=== PATIENT | female | born 1950 | race Caucasian/White ===

== ENCOUNTER → 2018-11-13 16:00 | Oncology outpatient (ONC) | payer OTHER, SELFPAY ==
[2018-10-23 15:38] VITALS: BP 133/74; PULSE 94; RESP 20; TEMP 36.4; O2SAT 96
--- NOTE | 2018-10-23 16:08 | ONC.CONS ---
History of Present Illness - Data of Consult Consult date: 10/23/18 Primary Care Provider: Temi Leary PA-C - Consult Narrative Narrative: Diagnosis: Possible hemochromatosis History of present illness: Mariel Bejarano is a 68 year old female who is referred for further evaluation. Patient states that her niece was diagnosed with hemochromatosis. She was found to have a ferritin of approximately 6000. Genetic testing revealed a compound heterozygous state. She has started on a phlebotomy regimen and is apparently doing quite well. the patient's sister was tested and found to be a carrier for the C282Y mutation. The patient had iron testing done on August 06. She was found to have an iron level of 135 which was normal. Her saturation was 51% which was normal. ferritin was modestly elevated at 314. She has never taken iron. She has no history of anemia. She has never needed a blood transfusion. She has never been a blood donor. She is postmenopausal. She denies any history of liver disease. She does not have diabetes. She does have some mild arthritis. She has not noticed any skin changes. no history of heart disease or congestive heart failure. She otherwise feels well today. Her medications include albuterol followed a pain Debby Advair and Spiriva. Her past medical history is notable for asthma and hypertension. She has had previous hysterectomy for a ovarian cyst. Social history: She is a retired psychologist. She does not smoke. She has occasional alcohol use. CC: Owen Gomez MD Home Medications and Allergies Home Medications Medication Instructions Recorded Confirmed Type albuterol sulfate [Ventolin HFA] 2 puff INHALATION Q4-6H PRN 10/23/18 10/23/18 History felodipine 10 mg PO DAILY 10/23/18 10/23/18 History fexofenadine 60 mg PO PRN PRN 10/23/18 10/23/18 History fluticasone propion-salmeterol BID 10/23/18 History [Advair Diskus] tiotropium bromide [Spiriva 2 puff INHALATION DAILY 10/23/18 10/23/18 History Respimat] Allergies Allergy/AdvReac Type Severity Reaction Status Date / Time penicillin G Allergy Unknown Verified 10/23/18 15:22 Review of Systems - Patient Self-Reported Symptoms SR Neuro issues: Numbness or tingling Cardiovascular: no chest pain Respiratory: wheezing Gastrointestinal: no jaundice Integumentary: no rash Hematologic/Lymphatic: no anemia Exam Vital signs: Vital Signs Temp Pulse Resp BP Pulse Ox 10/23/18 15:38 97.6 F 94 H 20 133/74 96 Intake and Output 10/23/18 10/23/18 10/23/18 07:59 15:59 23:59 Other: Weight 83.4 kg Patient Weight 10/23/18 23:59 Weight 83.4 kg - Constitutional positive no acute distress, positive average body habitus - Routine HEENT Exam Head: Present: normocephalic, atraumatic Eye: Present: EOMI, PERRL. Absent: conjunctival icterus, scleral injection ENT: Present: mucous membranes moist, mucous membranes dry - Routine Neck Exam Present: supple. Absent: lymphadenopathy, thyromegaly - Routine Respiratory Exam Present: Clear to auscultation bilaterally. Absent: rales, wheezes - Routine Cardiovascular Exam Present: RRR, S1, S2. Absent: murmur - Routine Abdominal Exam Present: soft, normoactive bowel sounds. Absent: tenderness, organomegaly, mass - Routine Extremities Exam Absent: cyanosis, clubbing, edema - Routine Back/Spine Exam Back/Spine: Absent: paraspinal tenderness, vertebral tenderness - Routine Skin Exam Present: intact. 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 Her family history is positive for hemochromatosis. Her niece is affected and her sister is a carrier. I think the most likely explanation is that the patient also is a carrier for the C282Y mutation. We will plan on checking her HIV status. If in fact she is a carrier, she is not at risk for developing manifestations of the disease and would not need phlebotomy. She will return to clinic in about 3 weeks for follow-up.
[2018-11-13 16:19] VITALS: BP 133/74; PULSE 94; RESP 20; TEMP 36.4; O2SAT 96
--- NOTE | 2018-11-13 16:40 | ONC.PN ---
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 She was noticed to have a mildly elevated ferritin at 314. Her iron level in saturation were normal. since her last visit here, she has been feeling quite well and has no specific complaints. She denies any new aches or pains. She is otherwise without complaint. Her medications are unchanged and include albuterol Xeloda pain Debby and an inhaler. - Patient Self-Reported Symptoms SR Neuro issues: Numbness or tingling Home Medications and Allergies Home Medications Medication Instructions Recorded Confirmed Type albuterol sulfate [Ventolin HFA] 2 puff INHALATION Q4-6H PRN 10/23/18 10/23/18 History felodipine 10 mg PO DAILY 10/23/18 10/23/18 History fexofenadine 60 mg PO PRN PRN 10/23/18 10/23/18 History fluticasone propion-salmeterol BID 10/23/18 History [Advair Diskus] tiotropium bromide [Spiriva 2 puff INHALATION DAILY 10/23/18 10/23/18 History Respimat] Allergies Allergy/AdvReac Type Severity Reaction Status Date / Time penicillin G Allergy Unknown Verified 10/23/18 15:22 Exam Vital signs: Vital Signs Temp Pulse Resp BP Pulse Ox 11/13/18 16:19 97.6 F 94 H 20 133/74 96 - Constitutional positive no acute distress, positive average body habitus Comments: She is not further examined. 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 Her family history is positive for hemochromatosis. Her niece is affected and her sister is a carrier. The patient's own genotyping does in fact confirm that she is a carrier for C 282Y. She has essentially no risk of developing manifestations of hemochromatosis. There is no indication for phlebotomy or for ferritin monitoring. I have not scheduled a follow-up appointment for her but would be happy to see her again in the future should any new issues arise.
== END ==
PROVIDERS: PCP Physician Assistant
DX: Z01.89 Encounter for other specified special examinations (principal); Z14.8 Genetic carrier of other disease
CPT/HCPCS: 81256; 99204; 99213; 99214

== ENCOUNTER → 2020-10-07 13:32 | Outpatient (CLI) | payer OTHER, SELFPAY ==
[2020-10-07 13:59] LABS: Add Manual Diff / Slide Review NO; Basophils Absolute Auto 100 /uL (0-100); Basophils Percent Auto 0.9 % (0-2); Eosinophils Absolute Auto 200 /uL (0-450); Eosinophils Percent Auto 2.6 % (2-4); Hematocrit 43.9 % (36-46); Hemoglobin 14.7 g/dL (12.0-16.0); Lymphocytes Absolute Auto 1300 /uL (1100-4500); Lymphocytes Percent Auto 21.6 % (25-40); Mean Corpuscular HGB Conc 33.5 % (30-36); Mean Corpuscular Hemoglobin 32.3 PG (26-34); Mean Corpuscular Volume 96.5 fL (80-100); Monocytes Absolute Auto 500 /uL (0-900); Monocytes Percent Auto 7.7 % (3-14); Neutrophils Absolute Auto 4200 /uL (1500-7000); Neutrophils Percent Auto 67.2 % (50-75); Platelet Count 277 X10^3/uL (150-400); Red Blood Cell Count 4.55 X10^6/uL (4.0-5.2); Red Cell Distribution Width 13.2 % (11.6-14.8); White Blood Cell Count 6.2 X10^3/uL (4.5-11.0)
[2020-10-07 14:18] LABS: Erythrocyte Sedimentation Rate 17 MM/HR (0-20)
[2020-10-07 14:20] LABS: Alanine Aminotransferase 45 IU/L (<35); Albumin 4.5 g/dL (3.5-5.0); Albumin Globulin Ratio 1.6 (1.0-2.8); Alkaline Phosphatase 75 U/L (38-126); Aspartate Aminotransferase 41 IU/L (14-36); BUN Creatinine Ratio 18.3 (6-22); Bilirubin Total 0.6 mg/dL (0.2-1.3); Blood Urea Nitrogen 11 mg/dL (7-17); Calcium 10.2 mg/dL (8.4-10.2); Carbon Dioxide 24 mmol/L (22-32); Chloride 103 mmol/L (98-107); Estimated Glomerular Filt Rate > 60.0 mL/min (>60); Globulin 2.9 g/dL (1.7-4.1); Glucose 115 mg/dL (80-110); HEMOLYSIS < 15 (0-50); Potassium 3.7 mmol/L (3.4-5.1); Sodium 137 mmol/L (137-145); Total Protein 7.4 g/dL (6.3-8.2)
[2020-10-07 14:25] LABS: C-Reactive Protein Quant 0.7 mg/dL (<1.0)
[2020-10-07 14:51] LABS: Thyroid Stimulating Hormone 1.81 uIU/mL (0.47-4.68)
[2020-10-12 22:51] LABS: Immunoglobulin E 190 IU/mL (6-495)
== END ==
PROVIDERS: PCP Internal Medicine; Referring Provider Allergy & Immunology; Visit Provider Internal Medicine
DX: I10 Essential (primary) hypertension (principal); R00.0 Tachycardia, unspecified; J45.50 Severe persistent asthma, uncomplicated
CPT/HCPCS: 36415; 80053; 82785; 84443; 85025; 85651; 86140

== ENCOUNTER → 2020-12-16 14:07 | Outpatient (CLI) | payer OTHER, SELFPAY ==
--- NOTE | 2020-12-16 09:31 | DI.ECHO.S_ITS ---
[facility] +---------+ : : [address] : : : : [address] : : : : Phone: [phone] Echocardiogram Report + + :Name: LONDON VALENTINO Study Date: 12/16/2020 Height: 65 in : :[facility] ReadingLocation: Weight: 180 lb : : Gender: Female BSA: 1.9 m2 : :: 1950 Age: 70 yrs BP: 152/79 mmHg: :Reason For Study: Dyspnea : :Ordering Physician: JEREMY : :ROLANDA Performed By: Grant Johnson : :Referring: ROLANDA LUNA : + + Interpretation Summary 1) Normal left ventricular thickness, size, wall motion, and systolic function (EF 60-65%). 2) Normal right ventricular size and function. 3) No significant valvular abnormalities. 4) The right ventricular systolic pressure is estimated to be at least 32 mmHg based on an estimated right atrial pressure of 3 mm Hg. 5) No prior Echo available for comparison. Procedure: A two-dimensional transthoracic echocardiogram with color flow and Doppler was performed. The study quality was technically adequate. There is no prior echocardiogram noted for this patient. The patient was in sinus rhythm with heart rates between 75-92 bpm during the exam. Left Ventricle: The left ventricle is normal in size and wall thickness. Left ventricular systolic function is normal. The ejection fraction is estimated to be 60-65%. There are no focal wall motion abnormalities. Diastolic parameters suggest probable normal left ventricular diastolic function and normal filling pressures. Right Ventricle: The right ventricle is normal in size and function. Atria: Both atria are normal in size. There is no Doppler evidence for an interatrial shunt. Mitral Valve: The mitral valve is normal in structure and function. There is trace mitral regurgitation. Aortic Valve: The aortic valve is normal in structure and function. There is no aortic valve stenosis. No aortic regurgitation is present. Tricuspid Valve: The tricuspid valve is normal in structure and function. There is mild tricuspid regurgitation. The right ventricular systolic pressure is estimated to be at least 32 mmHg based on an estimated right atrial pressure of 3 mm Hg. Pulmonic Valve: The pulmonic valve is not well visualized. There is no pulmonic valvular regurgitation. Great Vessels: The aortic root is normal size. The dimensions of the ascending aorta are normal. The IVC is of normal diameter and collapses greater than 50% with a sniff. This suggests a low right atrial pressure of 3 mm Hg. Pericardium/ Pleura There is no pericardial effusion. There is no pleural effusion. MMode/2D Measurements & Calculations LVIDd: 4.4 cm LVOT diam: 2.0 cm LVIDs: 2.9 cm Ao root diam: 2.9 cm FS: 35.6 % asc Aorta Diam: 2.8 cm IVSd: 0.94 cm LVPWd: 0.93 cm LV mathur. diameter/BSA (cm/m^2): 2.4 LV sys. diameter/BSA (cm/m^2): 1.5 LA A2 area: 15.7 cm2 RA area: 12.0 cm2 LA A4 area: 18.1 cm2 IVC diam: 1.5 cm LA length (vol): 4.7 cm LA vol: 51.1 ml LA vol index: 27.0 ml/m2 RVD1 (basal): 2.8 cm TAPSE: 2.2 cm Doppler Measurements & Calculations Ao V2 max: 166.9 cm/sec LVOT Max Wili: 113.2 cm/sec Ao V2 mean: 120.6 cm/sec LV V1 max P.1 mmHg Ao max P.1 mmHg LV V1 VTI: 25.9 cm Ao mean P.4 mmHg FRANCESCA(I,D): 2.2 cm2 Ao V2 VTI: 36.7 cm FRANCESCA(V,D): 2.1 cm2 sev ratio: 0.71 FRANCESCA indexed to BSA (cm^2/m^2): 1.1 MV E max wili: 87.9 cm/sec TR max wili: 270.5 cm/sec MV A max wili: 92.8 cm/sec TR max P.3 mmHg MV E/A: 0.95 PA pr(Accel): 34.4 mmHg Med Peak E' Wili: 12.5 cm/sec E/E' med: 7.0 Lat Peak E' Wili: 10.8 cm/sec E/E' lat: 8.1 E/e' average: 7.6 MV dec time: 0.19 sec SV(LVOT): 79.3 ml Reading Physician:05:58 PM
== END ==
PROVIDERS: PCP Internal Medicine; Referring Provider Internal Medicine; Visit Provider Internal Medicine
DX: M85.851 Other specified disorders of bone density and structure, right thigh (principal); Z78.0 Asymptomatic menopausal state; R06.00 Dyspnea, unspecified
CPT/HCPCS: 77080; 93306

== ENCOUNTER → 2021-01-27 10:15 | Outpatient (CLI) | payer OTHER, SELFPAY ==
[2021-01-27 11:12] LABS: Alanine Aminotransferase 37 IU/L (<35); Albumin 4.1 g/dL (3.5-5.0); Albumin Globulin Ratio 1.4 (1.0-2.8); Alkaline Phosphatase 65 U/L (38-126); Aspartate Aminotransferase 33 IU/L (14-36); BUN Creatinine Ratio 18.9 (6-22); Bilirubin Total 0.6 mg/dL (0.2-1.3); Blood Urea Nitrogen 10 mg/dL (7-17); Calcium 9.6 mg/dL (8.4-10.2); Carbon Dioxide 28 mmol/L (22-32); Chloride 105 mmol/L (98-107); Cholesterol 220 mg/dL (140-199); Estimated Glomerular Filt Rate > 60.0 mL/min (>60); Glucose 99 mg/dL (80-110); HDL Cholesterol 86 mg/dL (40-60); HEMOLYSIS < 15 (0-50); LDL Cholesterol Calculated 119 mg/dL (<100); Potassium 3.9 mmol/L (3.4-5.1); Sodium 139 mmol/L (137-145); Total Protein 7.1 g/dL (6.3-8.2); Triglycerides 75 mg/dL (35-150)
== END ==
PROVIDERS: PCP Internal Medicine; Referring Provider Internal Medicine; Visit Provider Internal Medicine
DX: E78.5 Hyperlipidemia, unspecified (principal); R06.00 Dyspnea, unspecified
CPT/HCPCS: 36415; 80053; 80061

== ENCOUNTER → 2021-05-16 10:34 | Outpatient (CLI) | payer OTHER, SELFPAY ==
[2021-05-16 12:50] LABS: Carbon Dioxide 29 mmol/L (22-32)
[2021-05-16 13:15] LABS: Alanine Aminotransferase 31 IU/L (<35); Albumin 4.4 g/dL (3.5-5.0); Albumin Globulin Ratio 1.7 (1.0-2.8); Alkaline Phosphatase 71 U/L (38-126); Aspartate Aminotransferase 28 IU/L (14-36); BUN Creatinine Ratio 16.1 (6-22); Bilirubin Total 0.8 mg/dL (0.2-1.3); Blood Urea Nitrogen 9 mg/dL (7-17); Calcium 9.7 mg/dL (8.4-10.2); Chloride 104 mmol/L (98-107); Cholesterol 178 mg/dL (140-199); Estimated Glomerular Filt Rate > 60.0 mL/min (>60); Globulin 2.6 g/dL (1.7-4.1); Glucose 102 mg/dL (80-110); HDL Cholesterol 109 mg/dL (40-60); HEMOLYSIS < 15 (0-50); LDL Cholesterol Calculated 55 mg/dL (<100); Potassium 4.2 mmol/L (3.4-5.1); Sodium 139 mmol/L (137-145); Triglycerides 69 mg/dL (35-150)
== END ==
PROVIDERS: PCP Internal Medicine; Referring Provider Internal Medicine; Visit Provider Internal Medicine
DX: E78.5 Hyperlipidemia, unspecified (principal)
CPT/HCPCS: 36415; 80053; 80061

== ENCOUNTER → 2021-09-30 10:48 | Outpatient (CLI) | payer OTHER, SELFPAY ==
[2021-09-30 12:37] LABS: COVID19 -Nasal RAPID Negative (Negative)
== END ==
PROVIDERS: PCP Internal Medicine; Visit Provider Family Medicine Sleep Medicine
DX: Z20.822 Contact with and (suspected) exposure to COVID-19 (principal)
CPT/HCPCS: 87635; C9803

== ENCOUNTER 2021-10-03 10:29 | Day surgery (SDC) | payer OTHER, SELFPAY ==
--- NOTE | 2021-10-03 | PATH_ITS ---
[facility] Accession Number: [id number] . 01 Material submitted: . colon - ASCENDING COLON . 02 Diagnosis: Ascending Colon: Tubular adenoma. MRV 10/05/2021 0959 Local . 02 Electronically signed: . Melida Delgado MD, Pathologist NPI- [id number] . 01 Gross description: . ASCENDING COLON: Received in formalin is 1 fragment(s) of hernandez, soft tissue measuring 0.2 x 0.2 x 0.1 cm submitted entirely in 1 cassette(s) /RAMBO 10/04/2021 2242 Local . 02 Pathologist provided ICD-10: K63.5, Z80.0, Z86.010 . 02 CPT . 125417 Specimen Comment: A courtesy copy of this report has been sent to [phone], [phone] Specimen Comment: [id number] Performed at: 01 [facility] Cyt[facility] [address] [facility], [place], [place] [id number] MD [address] MD Phone: [phone] Performed at: 02 [facility] [place] [address] [place], [place] [id number] MD Mariel Man MD Phone: [phone]
[2021-10-03 10:53] VITALS: BP 142/80; PULSE 114; RESP 12; TEMP 36.6; O2SAT 98; BMI 29.9
[2021-10-03] MEDS: SODIUM CHLORIDE 0.9% 1,000 ML 84 ML IV (11:06)
--- NOTE | 2021-10-03 11:30 | PM.HP.1 ---
History of Present Illness History of Present Illness Date Patient Seen: 10/03/21 Time Patient Seen: 11:30 Chief complaint: DX COLONOSCOPY Narrative: Personal history of colon polyps and a family history of colon cancer. Occasional fecal urgency Patient History Medical History Arthritis Asthma Cellulitis Diverticulitis HTN (hypertension) Surgical History Hx of appendectomy Hx of cataract surgery Hx of colonoscopy Hx of hysterectomy Family & Social History Family History Mother Hypertension Father Colon cancer Social History: household members significant other,other Tobacco & Substance use: Smoking Status Never smoker alcohol intake current alcohol intake frequency a few times a week Substance Use Type does not use Meds Home Medications and Allergies Home Medications Medication Instructions Recorded Confirmed Type albuterol sulfate 90 mcg/actuation 2 puff INHALATION Q4-6H PRN 10/23/18 10/03/21 History aerosol inhaler (Ventolin HFA) felodipine 10 mg tablet,extended 10 mg PO DAILY 10/23/18 10/03/21 History release 24 hr tiotropium bromide 2.5 2 puff INHALATION DAILY 10/23/18 10/03/21 History mcg/actuation mist for inhalation (Spiriva Respimat) budesonide-formoterol HFA 80 2 puff INHALATION BID 08/26/19 10/03/21 History mcg-4.5 mcg/actuation aerosol inhaler (Symbicort) Allergies Allergy/AdvReac Type Severity Reaction Status Date / Time penicillin G Allergy Unknown Verified 10/03/21 10:48 hydrobromides Allergy Unknown Uncoded 10/03/21 10:48 Tree pollen Allergy Unknown Watery Eye Uncoded 10/03/21 10:48 Review of Systems Review of Systems ROS: Yes All systems reviewed with the patient and are negative except as otherwise documented Exam Vital Signs (past 8 hours): - 10/03/21 10:53 Temperature 97.9 F Pulse Rate 114 H Respiratory Rate 12 Blood Pressure 142/80 H Pulse Oximetry 98 Oxygen Delivery Method Room Air Const General: cooperative and comfortable Orientation: alert HENMT Head: normocephalic Ears: external ears normal Nose: external nose normal Face and sinus: normal facial exam Mouth: oral mucosae normal Eyes General: appearance normal, both eyes and all related structures Neck Neck: normal visual inspection Chest Chest: normal inspection of the chest Resp Effort & Inspection: normal respiratory effort Cardio Rate: regular rate GI Inspection: normal to inspection Skin General: no rashes or lesions noted and No jaundice Neuro General: patient alert and moves all extremities Cognition: normal cognition Speech: speech normal Extrem General: no pedal edema Psych Appearance: grossly normal Assessment & Plan Assessment & Plan narrative: 71-year-old female with a personal history of colon polyps and family history of colon cancer. Colonoscopy is planned for today. Time Spent With Patient Critical Care time: I spent a total of [] minutes of critical care time on this patient's care today; this time is exclusive of procedural time.
--- NOTE | 2021-10-03 11:32 | PM.PREOP ---
Pre-operative Note COVID-19 COVID-19 status: Negative Result date/Date tested (Pos, Neg/Pending): 09/30/21 Criteria for continued procedure: Possibility delay results in more complex future surgery or treatment Interval Note History & Physical reviewed/Exam performed by Physician: Yes Changes to H&P: No ASA Class (for procedural sedation): II
--- NOTE | 2021-10-03 12:44 | PM.OP.COLON ---
Operative Date/Time/Diagnoses Date of procedure: 10/03/21 Time of procedure: 12:45 Pre-op diagnosis: Personal history of colon polyps family history of colon cancer Post-op diagnosis: same Procedure & Clinicians Study performed: Colonoscopy with cold forceps polypectomy Same procedure as scheduled: Yes Indications: Personal history of colon polyps family history of colon cancer Surgeon: Rakesh Alvarez Procedure Notes SCOAP/Timeout: Done Procedure in detail: After the risks and benefits were explained, written and verbal informed consent was obtained. The patient was brought into the procedure room and placed into the left lateral decubitus position. Please see nurse screen printing machine loader unloader notes for sedation details. Digital rectal examination was accomplished. The scope was introduced into the patient and advanced under direct visualization to the cecum as identified by the appendiceal orifice and ileocecal valve. The scope was slowly withdrawn to carefully examine the mucosa for any defects or lesions. Comprehensive imaging was accomplished throughout the rectum including the dentate line. The colon was decompressed, the scope was then removed from the patient who tolerated the procedure well. Bowel prep adequate Pediatric colonoscope Scope withdrawal time: 7 minutes Sedation minutes: 38 Complications: none Impression: Patient had fairly extensive diverticulosis in the sigmoid colon. This extended even into the right colon to some degree. Patient had an exceptionally challenging rectosigmoid junction to navigate as the corner was exceedingly acute. One we eventually arrived in the ascending colon it was quite difficult to then finally achieve cecal intubation secondary to some looping. This was overcome with patient position changed into the supine position with application of abdominal pressure. There was a small 3 mm polyp in the ascending removed with cold forceps. No additional pathology was appreciated throughout. Endoscopic diagnosis 1. Pandiverticulosis 2. Tortuous colon 3. Small colon polyp Post-procedure Plan for aftercare: 1. Await histopathology. 2. Considering family history and personal history of colon polyps, repeat colonoscopy can be considered in 5 years time. Disposition: PACU
[2021-10-03 12:50] VITALS: BP 114/56; PULSE 85; RESP 14; TEMP 36.2; O2SAT 96
[2021-10-03 12:55] VITALS: BP 110/58; PULSE 85; RESP 20; O2SAT 96
[2021-10-03 13:00] VITALS: BP 120/68; PULSE 85; RESP 21; O2SAT 99
[2021-10-03 13:11] VITALS: BP 100/73; PULSE 80; RESP 17; TEMP 36; O2SAT 95
[2021-10-03 13:20] VITALS: BP 115/65; PULSE 82; RESP 16; TEMP 36.2; O2SAT 97
== END 2021-10-03 12:25 | disposition home or self-care (01) ==
LOC: ENDO 10:31
PROVIDERS: PCP Internal Medicine; Referring Provider Internal Medicine Gastroenterology; Visit Provider Internal Medicine Gastroenterology
PROC: 0DJD8ZZ Inspection of Lower Intestinal Tract, Via Natural or Artificial Opening Endoscopic (ICD-10-PCS; CPT 45378; principal; 2021-10-03 11:30)
DX: Z12.11 Encounter for screening for malignant neoplasm of colon (principal); Z86.010 Personal history of colon polyps; Z80.0 Family history of malignant neoplasm of digestive organs; K57.30 Diverticulosis of large intestine without perforation or abscess without bleeding; D12.2 Benign neoplasm of ascending colon
CPT/HCPCS: 45380; J2704

== ENCOUNTER → 2022-02-02 14:28 | Outpatient (CLI) | payer OTHER, SELFPAY ==
--- NOTE | 2022-02-02 14:30 | DI.CT.S_ITS ---
PROCEDURE: CT CHEST WO CON INDICATIONS: Dyspnea, unspecified TECHNIQUE: Noncontrast 5 mm thick sections acquired from the pulmonary apices to the posterior costophrenic angles. 1 mm lung window, 5 mm thick coronal and sagittal and 7 mm axial MIP reformats were then acquired. For radiation dose reduction, the following was used: automated exposure control, adjustment of mA and/or kV according to patient size. COMPARISON: None. FINDINGS: Image quality: Excellent. Lungs and pleura: Scarring along the lingula and right middle lobe. No acute airspace consolidation. No pleural effusions. Calcified nodule in the left lower lobe. Other small noncalcified nodules are present, for example in the right image 3/122. There is bronchial wall thickening. Mediastinum: Small hiatal hernia. No thoracic aortic aneurysm. Heart size is normal. No lymphadenopathy. Bones and chest wall: Thyroid is within normal limits. No acute or suspicious osseous lesion. Abdomen: Unremarkable on this noncontrast examination. IMPRESSION: No acute thoracic abnormality. There is scarring along the lingula and right middle lobe. Small noncalcified pulmonary nodules can be followed with optional chest CT in 1 year for high risk patients. Small hiatal hernia. Dictated by: Estevan Hussein M.D. on 02/02/2022 at 15:11 Approved by: Estevan Hussein M.D. on 02/02/2022 at 15:22
--- NOTE | 2022-02-02 14:31 | DI.US.S_ITS ---
PROCEDURE: US PERIPH VENOUS LOW EXTREM BI INDICATIONS: Dyspnea, unspecified TECHNIQUE: Real-time imaging, as well as color and pulse Doppler interrogation, were performed of the deep veins of both legs from the inguinal ligament to the popliteal fossa. COMPARISON: None. FINDINGS: Right: The common femoral, femoral and popliteal veins are normally compressible, and free of intraluminal thrombus. Color and pulse Doppler demonstrate normal phasic intravascular flow. There is normal augmentation response to distal compression maneuver. Left: The common femoral, femoral and popliteal veins are normally compressible, and free of intraluminal thrombus. Color and pulse Doppler demonstrate normal phasic intravascular flow. There is normal augmentation response to distal compression maneuver. IMPRESSION: No deep venous thrombosis identified within either the left or right lower extremities. Dictated by: Jesus Clark [facility] Interpreted: Yashira Nicole MD on 02/02/2022 at 15:33 Transcribed by: FAVIAN on 02/02/2022 at 15:33 Approved by: Yashira Nicole M.D. on 02/02/2022 at 17:28
== END ==
PROVIDERS: PCP Internal Medicine; Referring Provider Internal Medicine Cardiovascular Disease; Visit Provider Internal Medicine Cardiovascular Disease
DX: R06.00 Dyspnea, unspecified (principal); M25.562 Pain in left knee; K44.9 Diaphragmatic hernia without obstruction or gangrene; R91.8 Other nonspecific abnormal finding of lung field; J98.4 Other disorders of lung
CPT/HCPCS: 71250; 93970

== ENCOUNTER → 2022-03-02 13:36 | Outpatient (CLI) | payer OTHER, SELFPAY ==
[2022-03-02 15:24] LABS: Alanine Aminotransferase 32 IU/L (<35); Albumin 4.2 g/dL (3.5-5.0); Albumin Globulin Ratio 1.6 (1.0-2.8); Alkaline Phosphatase 65 U/L (38-126); Aspartate Aminotransferase 34 IU/L (14-36); BUN Creatinine Ratio 17.7 (6-22); Bilirubin Total 0.6 mg/dL (0.2-1.3); Blood Urea Nitrogen 11 mg/dL (7-17); Calcium 9.4 mg/dL (8.4-10.2); Carbon Dioxide 28 mmol/L (22-32); Chloride 103 mmol/L (98-107); Estimated Glomerular Filt Rate > 60 mL/min (>60); Globulin 2.7 g/dL (1.7-4.1); Glucose 117 mg/dL (80-110); HEMOLYSIS < 15 (0-50); Potassium 4.2 mmol/L (3.4-5.1); Sodium 139 mmol/L (137-145); Total Protein 6.9 g/dL (6.3-8.2)
== END ==
PROVIDERS: PCP Internal Medicine; Referring Provider Internal Medicine; Visit Provider Internal Medicine
DX: R00.2 Palpitations (principal)
CPT/HCPCS: 36415; 80053

== ENCOUNTER → 2022-03-10 07:32 | Outpatient (CLI) | payer OTHER, SELFPAY ==
--- NOTE | 2022-03-10 | DI.NM.S_ITS ---
PROCEDURE: NM EXERCISE TREADMILL NON NUC COMPARISON: None. INDICATIONS: Dyspnea, unspecified FINDINGS: The patient exercised for 3 minutes and 37 seconds reaching 105% of maximum predicted heart rate (4.6 METs, VIRGILIO +34%). Appropriate BP response to exercise. No ST changes with exercise. No angina during the study. Dyspnea noted with exercise. IMPRESSION: Low risk, normal treadmill ECG only stress test with moderately reduced exercise tolerance (4.6METs, VIRGILIO +34%). Target heart rate achieved. No angina during the study. Dyspnea with exercise. Dictated by: Sarah Sanchez MD on 03/10/2022 at 13:10 Approved by: Sarah Sanchez MD on 03/10/2022 at 13:12
[2022-03-10 09:02] LABS: COVID19 -Nasal RAPID Negative (Negative)
== END ==
PROVIDERS: PCP Internal Medicine; Referring Provider Internal Medicine Cardiovascular Disease; Visit Provider Internal Medicine Cardiovascular Disease
DX: R06.00 Dyspnea, unspecified (principal); Z20.822 Contact with and (suspected) exposure to COVID-19
CPT/HCPCS: 87635; 93017

== ENCOUNTER → 2023-01-12 12:06 | Outpatient (CLI) | payer OTHER, SELFPAY ==
--- NOTE | 2023-01-12 | DI.CT.S_ITS ---
PROCEDURE: CT CHEST WO CON INDICATIONS: ABDNORMAL XRAY / LUNG NODULE TECHNIQUE: Noncontrast 5 mm thick sections acquired from the pulmonary apices to the posterior costophrenic angles. 1 mm lung window, 5 mm thick coronal and sagittal and 7 mm axial MIP reformats were then acquired. For radiation dose reduction, the following was used: automated exposure control, adjustment of mA and/or kV according to patient size. COMPARISON: [facility], CT, CT CHEST WO [facility], 02/02/2022, 14:35. FINDINGS: Lungs and pleura: No consolidation or pleural effusion. Redemonstrated scarring at the lingula and right middle lobe. A few scattered calcified granulomata are present. Previously indexed 1-2 mm nodule at the right upper lobe (3/125) is unchanged. No definite new suspicious or enlarging pulmonary nodule. Mediastinum: No pericardial effusion. Thoracic aorta and central pulmonary arteries are normal in size. Esophagus is normal in caliber. Small hiatal hernia. Bones and chest wall: Multilevel degenerative change of the visualized spine. No axillary or supraclavicular adenopathy by size criteria. Abdomen: Visualized upper abdominal solid organs and bowel loops appear unremarkable in the absence of contrast. IMPRESSION: Previously indexed tiny right upper lobe pulmonary nodule is unchanged. No definite new suspicious or enlarging pulmonary nodule. Small hiatal hernia. Dictated by: Giovany Bobo M.D. on 01/13/2023 at 18:06 Approved by: Giovany Bobo M.D. on 01/13/2023 at 18:28
== END ==
PROVIDERS: PCP Internal Medicine; Referring Provider Internal Medicine; Visit Provider Internal Medicine
DX: R91.8 Other nonspecific abnormal finding of lung field (principal); K44.9 Diaphragmatic hernia without obstruction or gangrene
CPT/HCPCS: 71250

== ENCOUNTER → 2023-07-14 08:11 | Outpatient (CLI) | payer OTHER, SELFPAY ==
[2023-07-14 09:13] LABS: Chloride 100 mmol/L (98-107); HEMOLYSIS < 15 (0-50)
[2023-07-14 09:14] LABS: Alanine Aminotransferase 41 IU/L (<35); Albumin 4.3 g/dL (3.5-5.0); Albumin Globulin Ratio 1.4 (1.0-2.8); Alkaline Phosphatase 62 U/L (38-126); Aspartate Aminotransferase 44 IU/L (14-36); BUN Creatinine Ratio 15.6 (6-22); Bilirubin Total 0.6 mg/dL (0.2-1.3); Blood Urea Nitrogen 10 mg/dL (7-17); Calcium 9.7 mg/dL (8.4-10.2); Carbon Dioxide 28 mmol/L (22-32); Estimated Glomerular Filt Rate > 60 mL/min (>60); Globulin 3.1 g/dL (1.7-4.1); Glucose 106 mg/dL (80-110); Potassium 4.2 mmol/L (3.4-5.1); Sodium 136 mmol/L (137-145); Total Protein 7.4 g/dL (6.3-8.2)
== END ==
LOC: LAB 08:12
PROVIDERS: PCP Internal Medicine; Referring Provider Physician Assistant; Visit Provider Physician Assistant
DX: U07.1 COVID-19 (principal)
CPT/HCPCS: 36415; 80053

== ENCOUNTER → 2024-12-15 11:58 | Outpatient (CLI) | payer MEDICARE, SELFPAY ==
--- NOTE | 2024-12-15 12:03 | DI.US.S_ITS ---
PROCEDURE: US CAROTID DOPPLER BI INDICATIONS: Right sided tinnitus TECHNIQUE: Color and pulse Doppler interrogation was performed of both carotid systems, with image documentation and velocity measurements. COMPARISON: None. FINDINGS: Stenosis calculations are based on SRU (Society of Radiologists in Ultrasound) criteria. The flow velocities and the arterial waveforms are normal within both carotid arterial systems. The estimated degree of internal carotid artery stenosis is less than 50%. Antegrade flow is confirmed within both vertebral arteries. IMPRESSION: No imaging explanation is found for this patient's presenting symptoms. No hemodynamically significant stenosis is seen. Dictated by: Yunior Musa M.D. on 12/15/2024 at 13:32 Approved by: Yunior Musa M.D. on 12/15/2024 at 13:32
== END ==
LOC: US 12:02
PROVIDERS: PCP Internal Medicine; Referring Provider Internal Medicine; Visit Provider Internal Medicine
DX: H93.11 Tinnitus, right ear (principal)
CPT/HCPCS: 93880